=== PATIENT | female | born 2000 | race Caucasian/White ===

== ENCOUNTER 2024-11-04 15:57 | Emergency (ER) | payer OTHER ==
[2024-11-04 17:23] VITALS: RESP 18; TEMP 98.3; O2SAT 97
--- NOTE | 2024-11-04 17:23 | ERPHSYRPT ---
- History of Present Illness Time Seen by Provider: 11/04/24 17:23 Source: patient, family Exam Limitations: no limitations Physician History: This is an obese 24-year-old white female patient who presents to the emergency department with worsening left flank pain over the last 3 to 4 days. She also has some pain in the right flank. Patient has not had any nausea vomiting or diarrhea symptoms. She has not had a measured fever. She has no chest pain. She has no cough. And she has no shortness of breath. Patient is allergic to amoxicillin but takes no medications chronically. Timing/Duration: day(s) (4) Activites at Onset: none Quality: aching Onset Location: left flank (Left flank) Severity of Pain-Max: mild Severity of Pain-Current: mild Modifying Factors: Improves With: nothing Associated Symptoms: urinary frequency, lower back pain (Left flank) Prior abdominal problems: none Sexual intercourse history: non-contributory Allergies/Adverse Reactions: amoxicillin Allergy (Verified 11/04/24 17:10) Hives Home Medications: No Reportable Medications [No Reported Medications] 11/04/24 [History] Travel Risk - International Travel Have you traveled outside of the country in past 3 weeks: No - Emerging Infectious Disease Are you exhibiting symptoms associated with any current EIDs: No - Past Medical History Pertinent Past Medical History: Yes - Review of Systems Constitutional: No Symptoms Eyes: No Symptoms Ears, Nose, & Throat: No Symptoms Respiratory: No Symptoms Cardiac: No Symptoms Abdominal/Gastrointestinal: No Symptoms Genitourinary Symptoms: Frequency, Flank Pain (Left greater than right) Musculoskeletal: No Symptoms Skin: No Symptoms Neurological: No Symptoms Psychological: No Symptoms Endocrine: No Symptoms Hematologic/Lymphatic: No Symptoms Immunological/Allergic: No Symptoms All Other Systems: Reviewed and Negative - Nursing Vital Signs Nursing Vital Signs: Initial Vital Signs Temperature 98.3 F 11/04/24 17:11 Pulse Rate 84 11/04/24 17:11 Respiratory Rate 18 11/04/24 17:11 Blood Pressure 137/84 11/04/24 17:11 O2 Sat by Pulse Oximetry 97 11/04/24 17:11 Pain Scale Pain Intensity 4 - Physical Exam General Appearance: no apparent distress, alert, anxiety, obese Eye Exam: PERRL/EOMI, eyes nml inspection Ears, Nose, Throat Exam: normal ENT inspection, moist mucous membranes Neck Exam: normal inspection, non-tender, supple, full range of motion Respiratory Exam: normal breath sounds, lungs clear, airway intact, No chest tenderness, No respiratory distress Cardiovascular Exam: regular rate/rhythm, normal heart sounds, normal peripheral pulses Gastrointestinal/Abdomen Exam: soft, normal bowel sounds, No tenderness Rectal Exam: not done Back Exam: normal inspection, normal range of motion, CVA tenderness (Mild to percussion on the left side), No vertebral tenderness Extremity Exam: normal inspection, normal range of motion, pelvis stable Neurologic Exam: alert, oriented x 3, cooperative, land acquisition analyst II-XII nml as tested, nml cerebellar function, nml station & gait, sensation nml Skin Exam: normal color, warm, dry Lymphatic Exam: No adenopathy SpO2 Interpretation: normal O2 Delivery: Room Air - Course Nursing assessment & vital signs reviewed: Yes Ordered Tests: Active Orders 24 hr Category Date Time Status ABDOMEN AND PELVIS W/0 CONTRAS [CT] Stat Exams 11/04/24 18:30 Taken HCG QUALITATIVE, URINE Stat Lab 11/04/24 18:15 Completed UA W/RFX UR CULTURE Stat Lab 11/04/24 18:15 Completed Lab/Rad Data: Laboratory Results 11/04/24 11/04/24 Range/Units 18:15 18:15 Urine Color Yellow (Yellow) Urine Appearance Clear (Clear) Urine pH 6.5 (4.6-8.0) Ur Specific [place] 1.020 (1.005-1.030) Urine Protein Negative (Negative) Urine Glucose (UA) Negative (Negative) mg/dL Urine Ketones Negative (Negative) Urine Blood Negative (Negative) Urine Nitrite Negative (Negative) Urine Bilirubin Negative (Negative) Urine Urobilinogen 1.0 A (0.2) mg/dL Ur Leukocyte Esterase Negative (Negative) U Hyaline Cast (Auto) NONE SEEN (0-2) /LPF Urine Microscopic RBC 0-2 (0-5) /HPF Urine Microscopic WBC 0-2 (0-5) /HPF Ur Epithelial Cells Rare (None Seen) /HPF Urine Bacteria Rare A (None Seen) /HPF Urine Culture Reflexed NO (NO) Urine HCG, Qual NEGATIVE (NEGATIVE) - Progress Progress: unchanged Progress Note: 11/04/24 18:29 My medical decision making of the assignment of low complexity of this patient's medical issue today is based on review of the patient's past medical history, review of the patient's medication list, reviewed patient drug allergy list, history present illness and physical findings on examination. The workup in this patient includes urinary hCG and urinalysis. Differential diagnosis includes but is not limited to muscle skeletal pain, urinary tract infection, 11/04/24 20:[address] scan of the abdomen pelvis without contrast was interpreted by the radiologist and I reviewed the impression. The impression states 2 cm left ovarian cyst. Otherwise normal CT scan abdomen pelvis without contrast Counseled pt/family regarding: lab results, diagnosis Medical Desision Making - Independent Historian Additional History obtained from: Spouse - Diagnostic Testing Diagnostic test were ordered, analyzed, and reviewed by me: Yes Radiological Interpretation: Reviewed by me, Teleradiologist Report - Risk of complications Minimal Risk: Minimal risk of morbidity - Departure Departure Disposition: Home Clinical Impression: Left flank pain, Left ovarian cyst Condition: Stable Critical Care Time: No Referrals: YARIEL VERAS, CORPORATE SAFETY MANAGER [Primary Care Provider] - Follow up/PCP as directed Additional Instructions: Drink plenty of fluids. Use Tylenol and ibuprofen for pain control if there are no contraindications. Call your primary care provider tomorrow, 11/05/2024, to make arrangements for a follow-up appointment to be seen in the next 3 to 5 days.
[2024-11-04 18:23] LABS: HCG URINE TEST NEGATIVE (NEGATIVE)
[2024-11-04 18:27] LABS: Appearance Clear (Clear); Bacteria Rare /HPF (None Seen); Bilirubin Negative (Negative); Blood Negative (Negative); Epithelial Cells Rare /HPF (None Seen); Glucose, Urine Negative (Negative); Hyaline Casts NONE SEEN /LPF (0-2); Ketones Negative (Negative); Leukocyte Esterase Negative (Negative); Nitrite Negative (Negative); Ph 6.5 (4.6-8.0); Protein,Urine Dip Negative (Negative); RBC 0-2 /HPF (0-5); WBC 0-2 /HPF (0-5)
[2024-11-04 20:08] VITALS: BP 107/74; PULSE 74
--- NOTE | 2024-11-05 08:49 | XRAY ---
Indication: Left flank pain. Multiple contiguous axial images obtained through the abdomen and pelvis without contrast using renal stone protocol. Comparison: None Lung bases clear. Heart is not enlarged. No renal calculus or evidence for obstructive uropathy in either system. There is 2 cm left ovary cyst. No free fluid/air. Noncontrasted stomach and bowel loops appear nonobstructed with normal appendix. Remaining liver, gallbladder, pancreas, spleen, adrenal glands, kidneys, ureters, bladder, uterus, and aorta are unremarkable for noncontrast exam. Osseous structures intact. Impression: 1. Negative renal calculus or evidence for obstructive uropathy. 2. Incidental 2 cm dominant left ovary cyst. 3. Remaining CT abdomen/pelvis without contrast exam is negative.
== END 2024-11-04 20:19 | disposition home or self-care (01) ==
LOC: ED 15:57
DX: R10.9 Unspecified abdominal pain (principal); N83.202 Unspecified ovarian cyst, left side
CPT/HCPCS: 74176; 81001; 81025; 99284